=== PATIENT | male | born 1970 | race Caucasian/White ===

== ENCOUNTER → 2020-01-13 06:57 | Outpatient (CLI) | payer BC, SELFPAY ==
--- NOTE | ~2020-01-13 | MR_ITS ---
EXAMINATION: MR knee LT wo con DATE: 01/13/2020 07:38 INDICATION: Acute onset left knee pain TECHNIQUE: Magnetic resonance imaging (MRI) of the left knee was performed without intravenous contra st. Sequences included coronal PD-weighted FSE, coronal PD-weighted FS FSE, sagittal T2-weighted FSE , sagittal PD-weighted FS FSE and axial PD weighted fat saturated FSE. COMPARISON: None. FINDINGS: Medial compartment: Complex medial meniscal tear and longitudinal horizontal tear plane extending posteriorly into the po sterior horn from a full or near full-thickness radial tear plane at the meniscal body. There is full /near full-thickness chondral ulceration with prominent subarticular edema at the anterior to central weightbearing medial femoral condyle. Additional medial side predominant partial thickness cartilage loss at the medial tibial plateau in places approaching full-thickness with small focus of underlyin g subarticular edema. Lateral compartment: Lateral meniscus is normal. Articular cartilage is normal. Patellofemoral compartment: Deep chondral fissuring with tiny focus of subarticular edema at the inferior aspect of the lateral p atellar facet and along the cephalad aspect of the apical ridge. There is minimal irregularity to the articular cortex and minimal subarticular edema underlying a region of deep chondral fissuring at th e caudal aspect of the trochlear groove and medial trochlea. Ligaments and tendons: Longitudinal split tear seen along the vertical portion of the posterior cruciate ligament. Small int rasubstance ganglion cyst extending along the otherwise intact appearing anterior cruciate ligament. The medial collateral ligament and fibular collateral ligament complex are normal. There is mild jones llar tendinopathy with multiple prominent enthesopathic ossicles in the distal third of the tendon ne ar its tibial insertion. The visualized medial and lateral hamstring tendons as well as the iliotibia l band are normal. Fluid: Large left knee joint effusion with mild synovitis at the suprapatellar pouch. Medial plical band is present which extends across the medial rim of the medial trochlea. No loose osteochondral bodies jill ntified. Osseous/other: Bone alignment is normal. No fracture or pathologic marrow replacing process. IMPRESSION: 1. Complex medial meniscal tear with significant progression of now severe osteoarthritis with extens te high-grade chondromalacia in the medial compartment. 2. Mild patellofemoral osteoarthritis with moderate to high-grade chondromalacia. 3. Longitudinal split tears in the anterior and posterior cruciate ligaments with small intrasubstanc e ganglion cyst within the anterior cruciate ligament. 4. Likely reactive large left knee joint effusion. 5. Mild patellar tendinopathy with enthesopathic ossification in the distal third of the tendon. Reviewed, dictated and finalized at location A. IMPRESSION: 1. Complex medial meniscal tear with significant progression of now severe oste oarthritis with extensive high-grade chondromalacia in the medial compartment. 2. Mild patellofemoral osteoarthritis with moderate to high-grade chondromalaci a. 3. Longitudinal split tears in the anterior and posterior cruciate ligaments wi th small intrasubstance ganglion cyst within the anterior cruciate ligament. 4. Likely reactive large left knee joint effusion. 5. Mild patellar tendinopathy with enthesopathic ossification in the distal thi rd of the tendon.
== END ==
PROVIDERS: PCP Physician Assistant; Visit Provider Physician Assistant
DX: S83.232A Complex tear of medial meniscus, current injury, left knee, initial encounter (principal); M17.12 Unilateral primary osteoarthritis, left knee; S83.512A Sprain of anterior cruciate ligament of left knee, initial encounter; S83.522A Sprain of posterior cruciate ligament of left knee, initial encounter; M94.262 Chondromalacia, left knee; X58.XXXA Exposure to other specified factors, initial encounter
CPT/HCPCS: 73721

== ENCOUNTER 2024-02-29 10:42 | Emergency (ER) | payer BC, SELFPAY ==
--- NOTE | ~2024-02-29 | CT_ITS ---
EXAMINATION: CT abdomen pelvis wo con DATE: 02/29/2024 10:56 INDICATION: Flank pain. TECHNIQUE: Computed tomography (CT) of the abdomen and pelvis was performed without intravenous contr ast. Automated exposure control and iterative reconstruction technique were employed. The dose-length product was 1560.17 mGy-cm. COMPARISON: None. FINDINGS: The visualized portions of the lung bases are clear without pneumonia or pleural effusion. The heart size is normal. No pericardial effusion. The liver is normal. There are changes of cholecys tectomy. Calcifications in the spleen are consistent with old granulomatous disease. The pancreas, ad renal glands, and left kidney are normal. There is mild right hydronephrosis. There is a 4 mm stone i n proximal right ureter. There are no dilated loops of bowel. The appendix is normal. There are no pa thologically enlarged lymph nodes. There is no free intraperitoneal fluid. There is prominent fat in left inguinal canal that may be a hernia. There is severe lumbar spondylosis and mild thoracic spondy losis. IMPRESSION: 1. 4 mm stone in proximal right ureter with mild right hydronephrosis. Reviewed, dictated and finalized at location A. ULTING PROJECT DIRECTOR
[2024-02-29 10:44] VITALS: BP 123/69; PULSE 51; RESP 16; TEMP 36.4; O2SAT 99
[2024-02-29 11:22] LABS: Basophils Percent Auto 0.5 % (0.2-1.2); Eosinophils Absolute Auto 0.2 K/mm3 (0-0.3); Eosinophils Percent Auto 2.6 % (0-4.4); Hematocrit 40.8 % (42.0-52.0); Hemoglobin 13.6 g/dL (14.0-18.0); Immature Granulocyte Absolute 0.01 K/mm3 (0.00-0.031); Immature Granulocyte Percent A 0.2 % (0-0.5); Lymphocytes Absolute Auto 1.99 K/mm3 (0.9-3.2); Lymphocytes Percent Auto 34.5 % (18.3-44.2); Mean Corpuscular HGB Conc 33.3 g/dl (32-36); Mean Corpuscular Hemoglobin 29.3 pg (26-34); Mean Corpuscular Volume 87.9 fl (80-100); Mean Platelet Volume 11.5 fl (7.4-10.4); Monocytes Absolute Auto 0.6 K/mm3 (0.1-0.6); Monocytes Percent Auto 10.1 % (2.6-8.5); Neutrophils Percent Auto 52.1 % (45.5-73.1); Platelet Count Result 252 k/mm3 (150-375); Red Blood Count 4.64 M/mm3 (4.6-6.20); Red Cell Distribution Width 12.7 % (11.5-14.5); White Blood Count 5.8 K/mm3 (4.5-10.0)
[2024-02-29 11:35] LABS: Alanine Aminotransferase 36 U/L (6-50); Albumin Level 4.2 g/dL (3.5-5.1); Alkaline Phosphatase 71 U/L (38-126); Anion Gap 6 mmol/L (4-12); Aspartate Amino Transferase 32 U/L (17-59); Bilirubin,Total 0.4 mg/dL (0.2-1.3); Blood Urea Nitrogen 18 mg/dL (9-20); Calcium 10.1 mg/dL (8.4-10.2); Carbon Dioxide 25 mmol/L (22-30); Chloride 107 mmol/L (98-107); Estimated CRCL calculation 110 ml/min; Estimated Glomerular Filt Rate > 60; Glucose 119 mg/dL (65-110); Sodium 138 mmol/L (137-145)
[2024-02-29 12:52] VITALS: RESP 16
--- NOTE | 2024-02-29 13:18 | ED_ITS ---
HPI - General Adult General Chief complaint: Unspecified Stated complaint: r flank pain Time Seen by Provider: 02/29/24 13:10 History of Present Illness HPI narrative: Pt presents with right flank pain. Pt says he had some brief pain yesterday which resolved and then pain started about 3 hrs ago radiating around to front. Pt denies dysuria or frequency. Pt had some nausea earlier but not now. Pt is constant but waxes and wanes in severity. Related Data Allergies Allergy/AdvReac Type Severity Reaction Status Date / Time No Known Allergies Allergy Unverified 05/30/13 05:20 Review of Systems Review of Systems: All systems reviewed & are unremarkable except as noted in HPI and below Exam Const: General: cooperative, healthy appearing and overweight Neck: Neck: normal visual inspection and full ROM Resp: Effort & Inspection: normal respiratory effort and able to speak in complete sentences Auscultation: clear to auscultation bilaterally Cardio: Rate: regular rate Rhythm: regular rhythm GI: Inspection: normal to inspection GI Palp: Yes Soft to palpation and No Tenderness to palpation present (GI) Auscultation: normal bowel sounds Back/Spine/Pelvis: Back: CVA tenderness (right) Skin: General skin exam: normal color and no rashes or lesions noted Neuro: General: patient oriented x3, moves all extremities and no focal motor deficits Speech: normal speech Extrem: General: normal to inspection, full ROM and no clubbing, cyanosis or edema Psych: Appearance: grossly normal Mental Status: mental status grossly normal Speech and movement: Normal speech and movement present Affect: normal affect Attitude: cooperative Thought process: Normal thought process present Course Vital Signs Vital signs: Vital Signs Temperature 97.5 F L 02/29/24 10:44 Pulse Rate 51 L 02/29/24 10:44 Respiratory Rate 16 02/29/24 10:44 Blood Pressure 123/69 02/29/24 10:44 Pulse Oximetry 99 02/29/24 10:44 Temperature 97.5 F L 02/29/24 10:44 Pulse Rate 64 02/29/24 14:35 Respiratory Rate 16 02/29/24 14:35 Blood Pressure 123/72 02/29/24 14:35 Pulse Oximetry 97 02/29/24 14:35 Medical Decision Making [facility] Narrative Medical decision making narrative: Pt presents with right flank pain radiating to groin seems like kidney stone sicne no urinary sx. will get CT and labs and treat pain. CT shows 4mm proximal ureteral stone with hydro. Pt feels better after meds. UA no infection. home on norco, zofran and flomax Vital Signs Vital Signs: Vital Signs Temperature 97.5 F L 02/29/24 10:44 Pulse Rate 51 L 02/29/24 10:44 Respiratory Rate 16 02/29/24 10:44 Blood Pressure 123/69 02/29/24 10:44 Pulse Oximetry 99 02/29/24 10:44 Temperature 97.5 F L 02/29/24 10:44 Pulse Rate 64 02/29/24 14:35 Respiratory Rate 16 02/29/24 14:35 Blood Pressure 123/72 02/29/24 14:35 Pulse Oximetry 97 02/29/24 14:35 Lab Data 02/29/24 11:12 02/29/24 11:12 Labs: Lab Results 02/29/24 02/29/24 Range/Units 11:12 13:24 WBC 5.8 (4.5-10.0) K/mm3 RBC 4.64 (4.6-6.20) M/mm3 Hgb 13.6 L (14.0-18.0) g/dL Hct 40.8 L (42.0-52.0) % MCV 87.9 (80-100) fl MCH 29.3 (26-34) pg MCHC 33.3 (32-36) g/dl RDW 12.7 (11.5-14.5) % Plt Count 252 (150-375) k/mm3 MPV 11.5 H (7.4-10.4) fl Immature Gran % (Auto) 0.2 (0-0.5) % Neut % (Auto) 52.1 (45.5-73.1) % Lymph % (Auto) 34.5 (18.3-44.2) % [place] % (Auto) 10.1 H (2.6-8.5) % Eos % (Auto) 2.6 (0-4.4) % Baso % (Auto) 0.5 (0.2-1.2) % Lymph # (Auto) 1.99 (0.9-3.2) K/mm3 [place] # (Auto) 0.6 (0.1-0.6) K/mm3 Eos # (Auto) 0.2 (0-0.3) K/mm3 Baso # (Auto) 0.0 (0.0-0.1) K/mm3 Abs Immat Gran (auto) 0.01 (0.00-0.031) K/mm3 Absolute Neuts (auto) 3.0 (1.3-6.7) K/mm3 Absolute Nucleated RBC 0.000 (0.0-0.012) K/mm3 Nucleated RBC % 0.0 (0.0-0.2) % Sodium 138 (137-145) mmol/L Potassium 4.0 (3.4-5.0) mmol/L Chloride 107 (98-107) mmol/L Carbon Dioxide 25 (22-30) mmol/L Anion Gap 6 (4-12) mmol/L BUN 18 (9-20) mg/dL Creatinine 1.00 (0.7-1.3) mg/dL Estim Creat Clear Calc 110 ml/min Estimated GFR > 60 (59 - ) Glucose 119 H (65-110) mg/dL Calcium 10.1 (8.4-10.2) mg/dL Total Bilirubin 0.4 (0.2-1.3) mg/dL AST 32 (17-59) U/L ALT 36 (6-50) U/L Alkaline Phosphatase 71 (38-126) U/L Total Protein 7.0 (6.3-8.2) g/dL Albumin 4.2 (3.5-5.1) g/dL Urine Color Yellow (Yellow) Urine Appearance Turbid H (Clear) Urine pH 8.0 (5.0-9.0) Ur Specific [place] 1.018 (1.001-1.035) Urine Protein Negative (Negative) mg/dL Urine Glucose (UA) Negative (Negative) mg/dL Urine Ketones Negative (Negative) mg/dL Ur Blood (Man) 1+ H (Negative) Urine Nitrate Negative (Negative) Urine Bilirubin Negative (Negative) Urine Urobilinogen 0.2 (<2.0) mg/dL Leukocyte Esterase Rfl Negative (Negative) OSBALDO/UL Urine RBC 11-20 H (0-2) /hpf Urine WBC 0-5 (0-3) /hpf Ur Squamous Epith Cells None seen (Few) /hpf Urine Bacteria None seen /hpf Urine Casts 0-2 Discharge Plan Discharge Clinical Impression: Ureterolithiasis Patient Disposition: Home, Self-Care Condition: Improved Instructions: Antibiotic Form, Kidney Stones (ED) Prescriptions: New hydrocodone-acetaminophen 5-325 mg tablet 1 tablet PO Q6H PRN (Reason: pain) Qty: 14 0RF tamsulosin [Flomax] 0.4 mg capsule 0.4 mg PO DAILY Qty: 10 0RF ondansetron 4 mg tablet,disintegrating 4 mg PO Q8H PRN (Reason: nausea and vomiting) Qty: 14 0RF Follow-up/Referrals: Natalie,Elio Sorensen PA-C [Primary Care Provider] - Sanjiv Muñoz MD [Physician] -
[2024-02-29] MEDS: ONDANSETRON INJ 4 MG/2 ML VIAL IV PUSH (13:32)
[2024-02-29] MEDS: HYDROmorphone HCL INJ (*CRX) 1 MG/ML SYR IV PUSH (13:32)
[2024-02-29 13:50] LABS: Add Urine Microscopic? YES; Appearance Urine Turbid (Clear); Bacteria Urine None Seen /hpf; Bilirubin Urine Negative (Negative); Blood Urine 1+ (Negative); Color Urine Yellow (Yellow); Glucose Urine UA Negative (Negative); Ketones Urine Negative (Negative); Leukocyte Esterase Ur Negative LEU/UL (Negative); Nitrate Urine Negative (Negative); Non Pathogenic Casts 0-2; Protein Urine Negative (Negative); Specific Grav Ur 1.018 (1.001-1.035); Squamous Epithelial Cell Urine None Seen /hpf (Few); Urobilinogen Urine 0.2 mg/dL (<2.0); WBC Urine 0-5 /hpf (0-3)
[2024-02-29 14:35] VITALS: BP 123/72; PULSE 64; RESP 16; O2SAT 97
== END 2024-02-29 14:45 | disposition home or self-care (01) ==
PROVIDERS: Emergency Provider Emergency Medicine; PCP Physician Assistant
DX: N20.1 Calculus of ureter (principal)
CPT/HCPCS: 36415; 74176; 80053; 81001; 85025; 96374; 96375; 99284; J1171; J2405

== ENCOUNTER 2024-06-05 08:58 | Emergency (ER) | payer BC, SELFPAY ==
[2024-06-05 09:04] VITALS: BP 113/80; PULSE 58; RESP 16; TEMP 36.4; O2SAT 99
--- NOTE | 2024-06-05 09:07 | ED.EAR ---
HPI - Ear Problem General Chief complaint: Ear Stated complaint: Ear Pain Time Seen by Provider: 06/05/24 09:05 Source: patient Mode of arrival: ambulatory Limitations: no limitations History of Present Illness HPI Narrative: David is a 54 year old male patient presenting to the clinic today with c/o right ear pain x 2-3 days. Did have some nasal congestion for the past couple days. No fever, chills, or body aches. Related Data Home Medications ?Medication ?Instructions ?Recorded ?Confirmed ?Last Taken ?Type bupropion HCl 150 mg 24 hr tablet, mg PO 06/05/24 Unknown History extended release fluoxetine 20 mg capsule mg 06/05/24 Unknown History Allergies Allergy/AdvReac Type Severity Reaction Status Date / Time No Known Allergies Allergy Verified 06/05/24 09:08 Review of Systems Review of Systems: Pertinent positives per HPI. Patient denies any fever, chills, rash, headache, visual changes, dizziness, cough, runny nose, sore throat, shortness of breath, chest pain, palpitations, nausea, vomiting, diarrhea, constipation, abdominal pain, or any urinary issues. PMFSH Comments At the time of my signature, I reviewed and agree with the nursing past medical, surgical, social, and family history. There is no relevant family history pertinent to the patient complaint. Exam Narrative: General: Well-developed, morbidly obese, in no apparent distress Head: Normocephalic, atraumatic Eyes: Pupils equally round and reactive to light bilaterally, EOM intact, sclera and conjunctive clear, no discharge, lids normal Ears: Left TMs intact and clear, right TM congested, mild bulging, intact, ear canals clear, no drainage, grossly hearing normal. Nose: Nares patent, clear discharge, no inflammation, no sinus tenderness. Mouth: Oropharynx without lesions or masses, good dentition, MMM. Neck: Supple, trachea midline, no enlargement of anterior or posterior cervical nodes, no thyroid masses or goiter palpable. Cardio: Regular rate and rhythm, s1 and s2 normal, no murmur appreciated. Resp: Clear to auscultation bilaterally anteriorly and posteriorly, no rhonchi, rales, wheezing or rubs Course Course Emergency Course: Portions of this record may have been created with voice recognition software. Level of Care: Express Care Visit Vital Signs Vital signs: Vital Signs Temperature 36.4 C L 06/05/24 09:04 Pulse Rate 58 L 06/05/24 09:04 Respiratory Rate 16 06/05/24 09:04 Blood Pressure 113/80 06/05/24 09:04 Pulse Oximetry 99 06/05/24 09:04 Temperature 36.4 C L 06/05/24 09:04 Pulse Rate 58 L 06/05/24 09:04 Respiratory Rate 16 06/05/24 09:04 Blood Pressure 113/80 06/05/24 09:04 Pulse Oximetry 99 06/05/24 09:04 Vital signs reviewed Medical Decision Making MDM Narrative Medical decision making narrative: At the time of visit patient is resting comfortably on the exam table. Patient appears to be nontoxic. Plan: I suspect patient has right eustachian tube dysfunction. Prescription for prednisone was sent to the pharmacy. Supportive measures were discussed with the patient and they voiced understanding discharge instructions and agrees to treatment plan. Return precautions reviewed Differential Diagnosis Differential Diagnosis: Otitis media, otitis externa, eustachian tube dysfunction, cerumen impaction, upper respiratory infection, serous otitis Vital Signs Vital Signs: Vital Signs Temperature 36.4 C L 06/05/24 09:04 Pulse Rate 58 L 06/05/24 09:04 Respiratory Rate 16 06/05/24 09:04 Blood Pressure 113/80 06/05/24 09:04 Pulse Oximetry 99 06/05/24 09:04 Temperature 36.4 C L 06/05/24 09:04 Pulse Rate 58 L 06/05/24 09:04 Respiratory Rate 16 06/05/24 09:04 Blood Pressure 113/80 06/05/24 09:04 Pulse Oximetry 99 06/05/24 09:04 Discharge Plan Discharge Clinical Impression: Acute dysfunction of right eustachian tube Patient Disposition: Home, Self-Care Condition: Stable Instructions: Antibiotic Form, Earache (ED) Additional Instructions: Take any prescribed medications only as directed-prednisone Tylenol/motrin as needed for pain Flonase and [id number] antihistamine such as Zyrtec or Claritin May use heating pad to alleviate pain If you get recurrent ear infections it may be warranted to follow up with ENT. Follow up with your PCP in 3-5 days if symptoms persist. Patient Language: Korean Prescriptions: New prednisone 20 mg tablet 40 mg PO DAILY 5 Days Qty: 10 0RF No Action fluoxetine 20 mg capsule bupropion HCl 150 mg tablet extended release 24 hr PO hydrocodone-acetaminophen 5-325 mg tablet 1 tablet PO Q6H PRN (Reason: pain) Qty: 14 0RF tamsulosin [Flomax] 0.4 mg capsule 0.4 mg PO DAILY Qty: 10 0RF Follow-up/Referrals: PHYSICIAN,MORGUE TECHNICIAN [Primary Care Provider] - Time of Disposition: 09:09 Quality NIHSS Nursing Documentation ED NIHSS nursing documentation: reviewed/agree
== END 2024-06-05 09:10 | disposition home or self-care (01) ==
PROVIDERS: Emergency Provider Nurse Practitioner Family
DX: H69.91 Unspecified Eustachian tube disorder, right ear (principal)
CPT/HCPCS: 99213; G0463